=== PATIENT | male | born 1950 | race Caucasian/White ===

== ENCOUNTER 2024-01-12 11:57 | Day surgery (SDC) | payer MEDICARE ==
[~2024-01-12] VITALS: Ht 180.3 cm; Wt 71.2 kg
[~2024-01-12 11:57] MED LIST: LR 1,000 ML IV SCH; Ondansetron 4 MG/2 ML VIAL IV PRN
[2024-01-12] MEDS ORDERED: ASPIRIN 81M81 MG/TA2 PO (13:21)
[2024-01-12] MEDS ORDERED: LIPITOR 40MG TA40 MG PO (13:21)
[2024-01-12] MEDS ORDERED: PLAVIX 75MG TAB75 MG PO (13:23)
[2024-01-12] MEDS ORDERED: FERROUS SU325 MG/TAB PO (13:25)
[2024-01-12] MEDS ORDERED: PROAMATINE10 MG PO (13:26)
[2024-01-12] MEDS ORDERED: PROTONIX 40MG T40 MG PO (13:27)
[2024-01-12] MEDS ORDERED: Lidocaine PF 2% (20 MG/ML) 5 ML VIAL ONE (13:42)
[2024-01-12 14:07] VITALS: BP 123/80; PULSE 73; TEMP 97.4
[2024-01-12 14:50] VITALS: BP 90/60; PULSE 60; TEMP 97.4
[2024-01-12 15:00] VITALS: BP 112/63; PULSE 58
[2024-01-12 15:15] VITALS: BP 117/68; PULSE 60
--- NOTE | 2024-01-12 15:32 | NUR ---
Pt returned via cart to [facility] 3 at 1526 and able to ambulate to recliner in bay with SBA. A&O. VSS-see flowsheet. Tolerated oral intake. Dr Aguilar in to visit with pt and post procedure. IV removed, pressure dressing applied. After pt dressed, taken via wheelchair to private vehicle for dc home with to drive.
== END 2024-01-12 15:35 | disposition home or self-care (01) ==
LOC: SDCO 11:57
DX: D12.0 Benign neoplasm of cecum (principal); K29.30 Chronic superficial gastritis without bleeding; K21.9 Gastro-esophageal reflux disease without esophagitis; K57.31 Diverticulosis of large intestine without perforation or abscess with bleeding; D50.9 Iron deficiency anemia, unspecified; I10 Essential (primary) hypertension; R63.4 Abnormal weight loss; Z95.5 Presence of coronary angioplasty implant and graft; Z87.891 Personal history of nicotine dependence; Z79.01 Long term (current) use of anticoagulants; Z79.82 Long term (current) use of aspirin; Z79.02 Long term (current) use of antithrombotics/antiplatelets; Z79.899 Other long term (current) drug therapy
CPT/HCPCS: J2704; J7120